=== PATIENT | male | born 1975 | race Caucasian/White ===

== ENCOUNTER → 2020-12-09 | Outpatient (CLI) | payer OTHER ==
[~2020-12-09] MED LIST: ATOR20TA37 PO; LISI-170 PO; TRIA1CAP3 PO
[2020-12-09 10:21] LABS: BASOPHILS % (AUTO) 1 % (0-1); EOSINOPHILS % (AUTO) 1 % (1-7); LYMPHOCYTES % (AUTO) 32 % (22-44); MEAN CORPUSCULAR HEMOGLOBIN 30.6 pg (27.5-34.5); MEAN CORPUSCULAR HGB CONC 34.7 g/dL (33.2-36.2); MEAN PLATELET VOLUME 7.9 fL (7.4-10.4); MONOCYTES % (AUTO) 8 % (2-9); NEUTROPHILS % (AUTO) 58 % (42-75); PLATELET COUNT 298 x10^3/uL (130-400); RED BLOOD COUNT 5.87 x10^6/uL (4.38-5.82); RED CELL DISTRIBUTION WIDTH 13.2 % (9.4-14.8)
[2020-12-09 10:25] LABS: CHLORIDE 102 mmol/L (98-107)
[2020-12-09 10:40] LABS: % IRON SATURATION 24 % (20-55); ALANINE AMINOTRANSFERASE 72 U/L (12-78); ALBUMIN 4.6 g/dL (3.4-5.0); ALKALINE PHOSPHATASE 69 U/L (45-117); ANION GAP 6 mmol/L (5-15); BILIRUBIN,TOTAL 0.9 mg/dL (0.2-1.0); CHOL/HDL RATIO 4.6; CHOLESTEROL, TOTAL 183 mg/dL (140-239); CREATININE 1.22 mg/dL (0.7-1.3); HDL CHOL % 22 % (26-37); HDL CHOLESTEROL (DIRECT) 40 mg/dL (40-60); IRON LEVEL 96 mcg/dL (65-175); LDL CHOLESTEROL,CALCULATED 90 mg/dL (54-169); LDL/HDL RATIO 2.3 (0.5-3.0); PREALBUMIN 36.6 mg/dL (20.0-40.0); TOTAL IRON BINDING CAPACITY 403 mcg/dL (250-450); TOTAL PROTEIN 8.6 g/dL (6.4-8.2); TRANSFERRIN 330 mg/dL (200-360); TRIGLYCERIDES 267 mg/dL (50-200); VLDL CHOLESTEROL 53 mg/dL (0-25)
== END | disposition home or self-care (01) ==
LOC: STAR 08:25
PROVIDERS: ATTEND Thoracic Surgery (Cardiothoracic Vascular Surgery)
DX: Z01.818 Encounter for other preprocedural examination (principal)
CPT/HCPCS: 36415; 71046; 80053; 80061; 82306; 82607; 82728; 82746; 83036; 83540; 83550; 83970; 84134; 84425; 84466; 85025; 93005

== ENCOUNTER 2020-12-15 08:27 | Inpatient (IN) | payer OTHER ==
[~2020-12-15] VITALS: Ht 172.7 cm; Wt 106.0 kg
[~2020-12-15 08:27] MED LIST changes: +BUPIVACAINE/PF 0.5% ONE; +EPINEPHRINE 1 MG/ML, 1ML ONE
[2020-12-15] MEDS ORDERED: MIDAZOLAM 1 MG/ML, 2ML ONE (11:18)
[2020-12-15] MEDS ORDERED: FENTANYL PF 250 MCG/5ML ONE (11:19)
[2020-12-15] MEDS ORDERED: ROCURONIUM 10MG/ML,5ML ONE (11:19)
[2020-12-15] MEDS ORDERED: GLYCOPYRROLATE 0.2MG/1ML, 5ML ONE (11:19)
[2020-12-15] MEDS ORDERED: PROPOFOL 10 MG/ML, 20ML ONE (11:19)
[2020-12-15] MEDS ORDERED: CEFAZOLIN 1,000 MG ONE (11:19)
[2020-12-15] MEDS ORDERED: NEOSTIGMINE 1 MG/ML, 10ML ONE (11:19)
[2020-12-15] MEDS ORDERED: ONDANSETRON 2MG/ML, 2ML ONE (11:19)
[2020-12-15] MEDS ORDERED: LACTATED RINGERS 1,000 ML IV SCH (11:30)
[2020-12-15] MEDS ORDERED: CHLORHEXIDINE 15 ML UDC PO ONE (11:30)
[2020-12-15] MEDS ORDERED: DEXAMETHASONE 4 MG/ML, 1ML ONE (12:16)
[2020-12-15] MEDS ORDERED: morphine SULFATE 10 MG/ML, 1ML IVPush PRN ×2 (12:30→13:30)
[2020-12-15] MEDS ORDERED: HALOPERIDOL 5 MG/ML IV PRN (12:30)
[2020-12-15] MEDS ORDERED: FENTANYL PF 100 MCG/2ML IV PRN (12:30)
[2020-12-15] MEDS ORDERED: LABETALOL 5MG/ML, 20ML IV PRN (12:30)
[2020-12-15] MEDS ORDERED: MEPERIDINE/PF 25MG/0.5ML IVPush PRN (12:30)
[2020-12-15] MEDS ORDERED: PROMETHAZINE 25 MG/ML, 1ML IVPush PRN (12:30)
[2020-12-15] MEDS ORDERED: hydrALAzine 20 MG/ML, 1ML IV PRN (12:30)
[2020-12-15] MEDS ORDERED: OXYcodone 5 MG/5 ML ORAL.SOL UDC PO PRN (12:30)
[2020-12-15] MEDS ORDERED: BUPIVACAINE/PF-EPI 0.5% 1:200K INFIL ONE (12:35)
[2020-12-15] MEDS ORDERED: FENTANYL PF 100 MCG/2ML ONE ×3 (12:42→12:54)
[2020-12-15] MEDS ORDERED: hydrALAzine 20 MG/ML, 1ML IVPush PRN (13:30)
[2020-12-15] MEDS ORDERED: PROMETHAZINE 25 MG/ML, 1ML IM PRN (13:30)
[2020-12-15] MEDS ORDERED: PHENOL THROAT SPRAY BOTTLE MM PRN (13:30)
[2020-12-15] MEDS ORDERED: METHOCARBAMOL 1,000 MG in DEXTROSE 5% 100 ML IV ONE (13:30)
[2020-12-15] MEDS ORDERED: DIPHENHYDRAMINE 50 MG/ML, 1ML IV PRN (13:30)
[2020-12-15] MEDS ORDERED: ONDANSETRON 2MG/ML, 2ML IVPush PRN (13:30)
[2020-12-15] MEDS ORDERED: ENALAPRILAT 1.25 MG/ML, 2ML IV PRN (13:30)
[2020-12-15] MEDS ORDERED: LORazepam 2 MG/ML, 1ML IV PRN (13:30)
[2020-12-15] MEDS ORDERED: PROMETHAZINE 12.5 MG SUPP PR PRN (13:30)
[2020-12-15] MEDS ORDERED: HYDR15SO3 PO (13:31)
[2020-12-15] MEDS ORDERED: ONDA4TAB13 SL (13:31)
[2020-12-15] MEDS ORDERED: OMEP20CA20 PO (13:31)
[2020-12-15] MEDS ORDERED: HYDROmorphone 2 MG/ML, 1ML ONE (13:39)
[2020-12-15] MEDS: HYDROmorphone 1 MG/ML, 1ML INJ IVPush PRN ×4 (13:43→14:26)
[2020-12-15] MEDS ORDERED: hydrALAzine 20 MG/ML, 1ML ONE (14:23)
[2020-12-15 14:55] VITALS: BP 155/98
[2020-12-15] MEDS: LACTATED RINGERS 1,000 ML IV SCH ×2 (17:38→20:10)
[2020-12-15] MEDS: ACETAMINOPHEN 100 ML IVPB SCH (17:39)
[2020-12-15 20:27] VITALS: BP 165/103
[2020-12-15] MEDS: KETOROLAC 30 MG/1 ML IVPush PRN (20:51)
[2020-12-15] MEDS: FAMOTIDINE 20 MG/2 ML IVPush SCH (20:58)
[2020-12-15] MEDS ORDERED: HYDROcodone/APAP 7.5-325MG/15ML UDC PO PRN (21:00)
[2020-12-15 21:05] VITALS: BP 123/63
[2020-12-16] MEDS: ACETAMINOPHEN 100 ML IVPB SCH (00:38)
[2020-12-16] MEDS: LACTATED RINGERS 1,000 ML IV SCH ×4 (00:38→09:08)
[2020-12-16 00:58] VITALS: BP 130/71
[2020-12-16] MEDS: KETOROLAC 30 MG/1 ML IVPush PRN ×2 (03:15→11:53)
[2020-12-16 04:38] VITALS: BP 125/73
[2020-12-16 06:42] LABS: BASOPHILS % (AUTO) 0 % (0-1); EOSINOPHILS % (AUTO) 0 % (1-7); LYMPHOCYTES % (AUTO) 13 % (22-44); MEAN CORPUSCULAR HEMOGLOBIN 30.4 pg (27.5-34.5); MEAN CORPUSCULAR HGB CONC 34.2 g/dL (33.2-36.2); MEAN PLATELET VOLUME 8.1 fL (7.4-10.4); MONOCYTES % (AUTO) 10 % (2-9); NEUTROPHILS % (AUTO) 77 % (42-75); PLATELET COUNT 271 x10^3/uL (130-400); RED BLOOD COUNT 5.05 x10^6/uL (4.38-5.82); RED CELL DISTRIBUTION WIDTH 13.1 % (9.4-14.8)
[2020-12-16 06:52] VITALS: BP 115/71
[2020-12-16 06:52] LABS: ALBUMIN 3.8 g/dL (3.4-5.0); ANION GAP 6 mmol/L (5-15); CALCIUM 8.4 mg/dL (8.5-10.1); CHLORIDE 102 mmol/L (98-107); CREATININE 1.76 mg/dL (0.7-1.3)
[2020-12-16] MEDS ORDERED: LISINOPRIL 20 MG TABLET PO SCH (09:00)
[2020-12-16] MEDS ORDERED: ENOXAPARIN 40 MG/0.4 ML SQ SCH (09:00)
[2020-12-16] MEDS: FAMOTIDINE 20 MG/2 ML IVPush SCH (09:07)
[2020-12-16 11:49] VITALS: BP 148/89
== END 2020-12-16 12:05 | disposition home or self-care (01) | DRG 621 ==
LOC: ORIP 10:22 → 4NE 14:53
PROVIDERS: ADMIT Thoracic Surgery (Cardiothoracic Vascular Surgery); ATTEND Thoracic Surgery (Cardiothoracic Vascular Surgery)
PROC: 0DB64Z3 Excision of Stomach, Percutaneous Endoscopic Approach, Vertical (ICD-10-PCS; principal; 2020-12-15 12:30)
DX: E66.01 Morbid (severe) obesity due to excess calories (principal); E78.00 Pure hypercholesterolemia, unspecified; G47.30 Sleep apnea, unspecified; I10 Essential (primary) hypertension; Z68.35 Body mass index [BMI] 35.0-35.9, adult
CPT/HCPCS: 36415; S0020; 80048; 82040; 85025; G0378; J0131; J0171; J0690; J1100; J1170; J1650; J1885; J2250; J2405; J2704; J2710; J3010; J0360; J2270; J2800; J7120